=== PATIENT | male | born 1955 | race Caucasian/White ===

== ENCOUNTER 2021-11-11 12:09 | Outpatient (CLI) | payer OTHER, SELFPAY ==
[2021-11-11 12:36] LABS: Hematocrit 45.9 % (40.0-54.0); Mean Corpuscular HGB Conc 34.9 g/dL (32.0-36.0); Mean Corpuscular Hemoglobin 32.4 pg (27.0-31.0); Mean Corpuscular Volume 92.9 fL (78.0-102.0); Mean Platelet Volume 9.5 fl (8.7-11.0); Platelet Count Result 168 K/mm3 (150-420); Red Blood Count 4.94 M/mm3 (4.70-6.10); Red Cell Distribution Width 12.1 % (11.6-14.4); White Blood Count 5.9 K/mm3 (4.8-10.8)
[2021-11-11 12:49] LABS: Hemoglobin A1C 10.4 % (<5.7)
[2021-11-11 13:01] LABS: Alanine Aminotransferase 46 U/L (16-63); Albumin Level 3.4 g/dL (3.4-5.0); Alkaline Phosphatase 69 U/L (46-116); Anion Gap 7 mmol/L (8-16); Aspartate Amino Transferase 16 U/L (15-37); Bilirubin,Total 0.7 mg/dL (0.00-1.00); Blood Urea Nitrogen 19 mg/dL (7-18); Calcium 9.1 mg/dL (8.5-10.1); Carbon Dioxide 28 mmol/L (21-32); Chloride 101 mmol/L (98-108); Cholesterol 184 mg/dL (0-200); Estimated Glomerular Filt Rate 54; HDL Direct 30 mg/dL (40-60); Osmolality Calculated 304 mOsm/kg (285-295); Potassium 4.5 mmol/L (3.5-5.1); Sodium 136 mmol/L (136-145); Total Protein 6.9 g/dL (6.4-8.2)
[2021-11-11 13:13] LABS: Glucose 451 mg/dL (70-99); LDL Cholesterol Calculated 41 mg/dL (<130); Triglycerides 563 mg/dL (0-150)
[2021-11-11 13:14] LABS: LDL Cholesterol Direct 76 mg/dL (0-130)
== END 2021-11-11 12:10 | disposition home or self-care (01) ==
LOC: CHSLAB 12:24
PROVIDERS: PCP Physician Assistant; Visit Provider Physician Assistant
DX: Z00.00 Encounter for general adult medical examination without abnormal findings (principal)
CPT/HCPCS: 36415; 80053; 80061; 83036; 83721; 85027

== ENCOUNTER 2024-04-25 09:17 | Outpatient (CLI) | payer MEDICARE, SELFPAY ==
[2024-04-25 13:25] LABS: Hemoglobin A1C 6.4 % (<5.7)
[2024-04-25 13:37] LABS: Alanine Aminotransferase 21 U/L (6-50); Albumin Level 4.2 g/dL (3.5-5.1); Alkaline Phosphatase 42 U/L (38-126); Anion Gap 6 mmol/L (4-12); Aspartate Amino Transferase 25 U/L (17-59); Bilirubin,Total 0.8 mg/dL (0.2-1.3); Blood Urea Nitrogen 28 mg/dL (9-20); Calcium 9.1 mg/dL (8.4-10.2); Carbon Dioxide 28 mmol/L (22-30); Chloride 105 mmol/L (98-107); Estimated Glomerular Filt Rate > 60; Glucose 179 mg/dL (65-110); Potassium 4.1 mmol/L (3.4-5.0); Sodium 139 mmol/L (137-145)
== END 2024-04-25 09:18 | disposition home or self-care (01) ==
LOC: ANHGOSHLAB 09:18
PROVIDERS: PCP Nurse Practitioner Family; Visit Provider Nurse Practitioner Family
DX: E11.9 Type 2 diabetes mellitus without complications (principal); I10 Essential (primary) hypertension
CPT/HCPCS: 36415; 80053; 83036

== ENCOUNTER 2024-09-07 08:13 | Outpatient (RCR) | payer MEDICARE, SELFPAY ==
[2024-09-07 08:37] VITALS: BMI 36.1
[2024-09-07 09:39] VITALS: BMI 36.1
== END 2024-11-26 09:37 | disposition home or self-care (01) ==
LOC: ANHDMC 08:13
PROVIDERS: PCP Nurse Practitioner Family; Visit Provider Family Medicine
DX: E11.22 Type 2 diabetes mellitus with diabetic chronic kidney disease (principal); N18.31 Chronic kidney disease, stage 3a; Z71.3 Dietary counseling and surveillance
CPT/HCPCS: 97802